=== PATIENT | male | born 2000 ===

== ENCOUNTER 2024-12-10 09:51 | Emergency (ER) | payer SELFPAY ==
[~2024-12-10] VITALS: Ht 172.7 cm; Wt 83.9 kg
[2024-12-10] MEDS ORDERED: AMOCLA875 PO (10:13)
== END 2024-12-10 10:32 ==
LOC: ER 09:51
DX: H66.92 Otitis media, unspecified, left ear (principal)
CPT/HCPCS: 99282; A9270